=== PATIENT | male | born 1985 | race Caucasian/White ===

== ENCOUNTER 2019-09-05 10:47 | Emergency (ER) | payer OTHER ==
--- NOTE | 2019-09-05 11:19 | ED Physician Documentation ---
PD HPI LOWER EXT INJURY - Stated complaint Stated Complaint: L LEG PX/INFLIMATION - Chief complaint Chief Complaint: Ext Problem - History obtained from History obtained from: Patient (Playing baseball last night and another player ran into the lateral part of his right knee and now he has a large effusion and cannot bend it. Pain is mild at rest but significant if he tries to walk.) Review of Systems Constitutional: denies: Fever, Chills Cardiac: reports: Reviewed and negative Respiratory: reports: Reviewed and negative PD PAST MEDICAL HISTORY - Past Medical History Past Medical History: No - Past Surgical History Past Surgical History: No - Present Medications Home Medications: Ambulatory Orders Medication Instructions Recorded Confirmed Hydrocodone/Acetaminophen 1 - 2 each PO Q6H PRN #20 tablet 09/05/19 [Hydrocodon-Acetaminophen 5-325] - Allergies Allergies/Adverse Reactions: Allergies Allergy/AdvReac Type Severity Reaction Status Date / Time No Known Drug Allergies Allergy Verified 09/05/19 11:02 - Social History Does the pt smoke?: No Smoking Status: Never smoker Does the pt drink ETOH?: Yes Does the pt have substance abuse?: No - Immunizations Immunizations are current?: Yes PD ED PE NORMAL - Vitals Vital signs reviewed: Yes - General General: Alert and oriented X 3, No acute distress - Extremities Extremities: Other (There is a large effusion of the left knee, tender anteriorly and mildly laterally. Can bend it only to a little less than 90 degrees. Ligamentous testing seems intact.) - Neuro Neuro: Alert and oriented X 3, Normal speech Results - Vitals Vitals: Vital Signs - 24 hr 09/05/19 10:59 Temperature 36.8 C Heart Rate 84 Respiratory 16 Rate Blood Pressure 134/93 H O2 Saturation 99 Oxygen O2 Source Room air - Rads (name of study) Knee XR and Knee CT Radiology: EMP read contemporaneously (Lateral tibial plateau fracture and associated large lipohemarthrosis) PD MEDICAL DECISION MAKING - ED course ED course: 34-year-old gentleman presents with an isolated knee injury from last night and found to have a tibial plateau fracture. Images were reviewed with on-call Ortho, Dr. Mendoza who felt that this was nonoperative and can be nonweightbearing in a knee immobilizer pending follow-up. Departure - Departure Disposition: 01 Home, Self Care Clinical Impression: Fracture of left tibial plateau Qualifiers: Encounter type: initial encounter Fracture type: closed Qualified Code(s): S82.142A - Displaced bicondylar fracture of left tibia, initial encounter for closed fracture Condition: Good Record reviewed to determine appropriate education?: Yes Instructions: ED Fx Knee Follow-Up: [facility] [Provider Group] Prescriptions: Hydrocodone/Acetaminophen [Hydrocodon-Acetaminophen 5-325] 1 - 2 each PO Q6H PRN #20 tablet PRN Reason: pain Comments: [facility], they may [facility] or they may write you a referral so [facility] The local [facility] office number is on this form. You should follow-up with an orthopedist within the week. Pending that, keep the knee immobilizer on at all times, do not walk or bear any weight on the left leg.
--- NOTE | 2019-09-05 11:54 | XRAY Report ---
PROCEDURE: Knee 4 View LT INDICATIONS: knee injury TECHNIQUE: 4 views of the left knee(s) were acquired. COMPARISON: None. FINDINGS: Bones: There is an acute fracture involving lateral tibial plateau. No significant depression at the fracture site is seen. No other fracture or dislocation is noted. No patellar subluxation. No suspici ous bony lesions. Soft tissues: Moderate to large joint effusion with fat/fluid level is seen concerning for labral hem arthrosis. No suspicious soft tissue calcifications. IMPRESSION: Suggestion of a lateral tibial plateau fracture with moderate to large lipohemarthrosis. Reviewed by: Cole Osorio MD on 09/05/2019 11:52 AM PDT Approved by: Cole Osorio MD on 09/05/2019 11:52 AM PDT Station ID: [id number]
[2019-09-05] MEDS ORDERED: oxyCODONE 5 MG TABLET PO STA (12:04)
--- NOTE | 2019-09-05 12:57 | CT Report ---
PROCEDURE: LOWER EXTREMITY WO - LT INDICATIONS: knee tibial plateau frx TECHNIQUE: Noncontrast 3 mm axial sections acquired of the left knee, with coronal and sagittal reformats. COMPARISON: Left knee radiograph dated same day. FINDINGS: Image quality: Excellent. Bones: Lateral tibial plateau split depression fracture is present, with approximately 5 mm of artic ular surface depression. There is comminuted appearance and articular surface irregularity. Remaining osseous structures appear intact. Large lipohemarthrosis is again noted. IMPRESSION: Lateral tibial plateau split depression fracture (Schatzker type II) Associated large lipohemarthrosis Reviewed by: Josh Shin MD on 09/05/2019 12:56 PM PDT Approved by: Josh Shin MD on 09/05/2019 12:56 PM PDT Station ID: [id number]
[2019-09-05 13:27] VITALS: BP 120/80
== END 2019-09-05 13:28 | disposition home or self-care (01) ==
LOC: ED 10:47
DX: S82.142A Displaced bicondylar fracture of left tibia, initial encounter for closed fracture (principal); W51.XXXA Accidental striking against or bumped into by another person, initial encounter; Y93.64 Activity, baseball
CPT/HCPCS: 73564; 73700; 99283; A9270